=== PATIENT | female | born 1990 | race Caucasian/White ===

== ENCOUNTER 2017-04-28 08:27 | Emergency (ER) | payer BC, SELFPAY ==
[2017-04-28 08:30] VITALS: BP 133/75; PULSE 97; RESP 17; TEMP 36.7; O2SAT 96; BMI 56.5
--- NOTE | 2017-04-28 08:36 | CT_ITS ---
STUDY: CT ABDOMEN AND PELVIS WITHOUT CONTRAST REASON FOR EXAM: Female, 26 years old. Right flank pain. Elevated white cell count. RADIATION DOSAGE (If Supplied By Facility): CTDIvol = ( 23.68 ) mGy, DLP = ( 1283.96 ) mGycm TECHNIQUE: Transaxial images were obtained from the dome of the diaphragm to the symphysis pubis without oral contrast, and without intravenous contrast. Sagittal and coronal images were reconstructed. Individualized dose optimization techniques were used for this CT. COMPARISON: None. FINDINGS: There are 3 small nodular densities in the anterior aspect of the right lower lobe. The largest nodule measures 9 mm. Linear scarring is seen along its peripheral aspect suggestive of possible scarring. Follow-up is recommended. The visualized portions of the heart are within normal limits. There is decreased attenuation of the liver consistent with steatosis. Normal gallbladder and extrahepatic biliary system. Normal spleen. Normal pancreas. Normal bilateral adrenal glands. Normal right kidney. Normal left kidney. There is a small hiatal hernia. Normal small intestine. Normal colon. The appendix is visualized and appears normal. Normal abdominal aorta. Normal inferior vena cava. Normal retroperitoneum. Normal urinary bladder. Normal abdominal wall. Normal osseous structures. CT/Abdomen/Pelvis without Cont IMPRESSION: 3 nodular densities are seen in the right lower lobe. Radiographic follow-up is recommended. Electronically Signed: Shaquille Ty MD at 10:26 EDT Tel [phone], Service support ,
--- NOTE | 2017-04-28 08:42 | ED.VISSUMM ---
- ER Visit Summary Date of Service: 04/28/17 Chief Complaint: [] Pain 2 AM this morning History of Present Illness: The patient is a 26 F [] history is for hypothyroid, on medications went to bed feeling fine woke to him this morning because of right flank pain that persisted she went to some urgent care clinic they sent her to the emergency department. Her bowel bladder habits been normal no nausea vomiting fever no trauma she takes her hand and draws across her right flank to her right middle quadrant she did have again normal bowel and bladder habits today she is having no other complaints review of systems are entirely negative she has never had this pain before she has no history of GI hepatobiliary renal disorder there is no concern for Patient lives out of [facility] and is going home to [place] soon Physical Examination: [] Those are normal she is a very large woman head neck chest unremarkable again she points to the flank across the right middle quadrant there is no skin lesions here there is no midline back pain there is no significant right upper quadrant pain rather vague pain to the entire right side of the abdomen no rebound or guarding obese lower extremities unremarkable neurologic she is awake moving all 4 she is rocking in the bed complaining of discomfort Test Results: [] Emergency Department Course and Treatment: [] In all the above comprehensive evaluations pursued Labs and UA were all generally unremarkable see those reports, the CT abdomen flank showed nothing acute did show a few nodular lesions 9 mm max in the right lower lobe further follow-up recommended Plan test results to her I explained these lesions in the right lower lung that were found incidentally work will require fire follow-up she understands at this time she will be discharged on Naprosyn and she will follow-up with her physicians in [place] when she gets home further I will provide her all of her test results so she has that information to provide her physicians Treatment Plan: [] Disposition: [] Stable, home Impression: []Flank pain etiology unclear nodular lesions right lower lung found incidentally etiology unclear This note was generated with [employer] dictation software. It may contain incorrect words, spelling, and punctuation that were not noted in review of the chart prior to signing ED Disposition - Plan for ED Patient: Chief Complaint: Flank Pain Referrals: [facility] Doctor,Out of [Primary Care Provider] -
[2017-04-28] MEDS: 0.9% Normal Saline 1,000 ML 999 ML IV (09:08)
[2017-04-28] MEDS: morphine 8 MG/ML Syringe IV (09:10)
[2017-04-28] MEDS: Ondansetron 4 MG/2 ML Vial IV (09:11)
[2017-04-28 09:25] LABS: Absolute Lymphocyte Count 1.68 X10^3/ul (0.83-4.51); Absolute Neutrophil Count 10.3 X10^3/uL (2.0-7.7); Basophil# 0.04 X10^3/uL; Basophil% 0.3 % (0-1); Eosinophil# 0.37 X10^3/uL; Eosinophils% 2.9 % (0-5); Hematocrit 43.1 % (37-47); Hemoglobin 14.4 g/dl (12.0-15.0); Lymphocyte # 1.68 X10^3/ul (4.0); Lymphocyte % 13.1 % (19-41); Mean Corp Hgb Conc 33.4 g/gl (32-36); Mean Corpuscular Volume 89.8 fL (81-99); Mean Platelet Vol. 9.8 fl (6.2-12.0); Monocyte# 0.45 X10^3/uL; Monocyte% 3.5 % (0-10); Neutrophil # 10.31 X10^3/uL (2.7-7.7); POSITIVE COUNT NO; POSITIVE DIFFERENTIAL NO; POSITIVE MORPHOLOGY NO; Platelet Count 443 K/mm3 (150-450); RBC Distribution Width CV 13.7 % (11.6-14.6); RBC Distribution Width SD 44.4 fl (35.1-43.9); White Blood Count 12.9 K/mm3 (4.4-11.0)
[2017-04-28 09:35] LABS: AST(SGOT) 34 U/L (15-37); Alanine Aminotransfer ALT/SGPT 55 U/L (13-56); Albumin, Serum 3.1 g/dL (3.2-5.0); Alkaline Phosphatase 71 U/L (45-117); Anion Gap 9 (5-15); BUN 12 mg/dL (7-18); BUN/Creat Ratio 14.7 RATIO (10-20); Bilirubin, Direct 0.08 mg/dL (0.00-0.30); Calcium,Total 8.6 mg/dL (8.5-10.1); Chloride 106 mmol/L (98-107); Creatinine, Serum 0.82 mg/dL (0.55-1.02); EST Glomerular Filtration Rate 88 mL/min (>60); Est Glom Filt Rate - Afr Amer 106 mL/min (>60); Estimated Creatinine Clearance 77.08 ml/min; Globulin 4.4 g/dL (2.2-4.2); Glucose 106 mg/dL (74-106); Lipase 103 U/L (73-393); Potassium 4.1 mmol/L (3.5-5.1); Protein, Total 7.5 g/dL (6.4-8.2); Sodium Level 140 mmol/L (136-145)
[2017-04-28 09:44] LABS: Pregnancy, Serum, hCG Quali. NEGATIVE Negative (0-9 Nonpreg)
[2017-04-28] MEDS: Ketorolac 30 MG/ML Syringe IV (10:57)
[2017-04-28 11:00] LABS: Mucous, Urine 0 SEEN /hpf (<or=2+); Red Blood Cells-Urine 0 SEEN /hpf (0-5)
[2017-04-28 11:03] LABS: Color, Urine Yellow (Yellow); Glucose, Dipstick Normal (Normal); Ketone-Dipstick 5 mg/dl (Negative); Leukocyte Esterase-Dipstick Negative /ul (Negative); Nitrite-Dipstick Negative (Negative); Occult Blood-Urine 10 /ul (Negative); Protein-Dipstick Negative (Negative); Specific Gravity, Urine 1.015 (1.002-1.030); Urine Bilirubin Dipstick Negative (Negative); Urine Clarity Clear (Clear); Urine Urobilinogen Normal (Normal)
[2017-04-28 11:08] LABS: Squamous Epithelial Cells - UA 0-5 SEEN /hpf (5-10); White Blood Cells 0-5 SEEN /hpf (0-5)
[2017-04-28 11:09] LABS: Bacteria RARE /hpf (None Seen)
--- NOTE | 2017-04-28 11:22 | DCINST.ED_ITS ---
ED Disposition - Plan for ED Patient: Chief Complaint: Flank Pain Instructions: ED Flank Pain Uncertain Cause Prescriptions: Naproxen [Naprosyn] 500 mg PO BID PRN #20 tab Referrals: [facility] Doctor,Out of [Primary Care Provider] -
[2017-04-28 11:39] VITALS: BP 135/86; PULSE 80; RESP 16; O2SAT 97
== END 2017-04-28 11:40 | disposition home or self-care (01) ==
PROVIDERS: Emergency Provider Emergency Medicine
DX: R10.9 Unspecified abdominal pain (principal); R91.1 Solitary pulmonary nodule; E03.9 Hypothyroidism, unspecified
CPT/HCPCS: 74176; 80048; 80076; 81001; 83690; 84703; 85025; 96361; 96374; 96375; 99283; J7030; A4216; J2405